=== PATIENT | female | born 1950 | race Caucasian/White ===

== ENCOUNTER → 2018-10-20 | Outpatient (REF) | payer BC ==
[~2018-10-20] MED LIST: ALTA1CAP3 PO; ASPI81TA85 PO; CALC1TAB21 PO; CLAR1TAB2 PO; COQ-1CAP PO; EFFE37.5 PO; FISH120012 PO; FISH500C PO; LIPI10TA; LUTE20CA PO; MULT1TAB10 PO; VITA400D PO; VITA500C2 PO
== END ==
LOC: M LAB REF 16:50
PROVIDERS: ATTEND Internal Medicine
DX: R31.9 Hematuria, unspecified (principal)